=== PATIENT | female | born 1995 | race Caucasian/White ===

== ENCOUNTER 2021-10-23 18:50 | Emergency (ER) | payer MEDICAID, SELFPAY ==
[2021-10-23 19:10] VITALS: BP 133/75; PULSE 103; RESP 20; TEMP 36; O2SAT 98; BMI 23.8
[2021-10-23 19:20] LABS: Glucose, Whole Blood 73 mg/dL (60-115)
--- NOTE | 2021-10-23 20:38 | ED_ITS ---
HPI - Recheck/Abnormal Lab/Rx General Chief Complaint: Recheck/Abnormal Lab/Rx Stated Complaint: High blood sugar 150 Time Seen by Provider: 10/23/21 20:31 Source: patient Mode of arrival: ambulatory Limitations: no limitations History of Present Illness HPI narrative: BS upon waking today 114, ate breakfast two hours later 150 has been tired lately and had mild headache - grandmother told her to come get checked out for possible diabetes complaint: abnormal lab (glucose 150 at home after eating) Symptoms since prior visit: no new symptoms Associated symptoms: malaise and other (mild headache) Related Data Allergies Allergy/AdvReac Type Severity Reaction Status Date / Time No Known Allergies Allergy Unverified 01/15/20 18:26 Review of Systems Review of Systems: Constitutional : No Fever, No Chills, pos Fatigue ENT/Mouth : No sore throat, No Rhinorrhea Eyes: No Eye Pain, No Swelling, No Redness Cardiovascular : No Chest Pain, No SOB, No Dyspnea on Exertion Respiratory : No Cough, No Sputum Gastrointestinal : No Nausea, No Vomiting, No Diarrhea, No abdominal Pain Genitourinary : No Dysuria, No Urinary Frequency, No Hematuria, Musculoskeletal : No joint pain, No Myalgias, No Joint Swelling Skin : No Skin Lesions, No rash Neuro : No Weakness, No Numbness, No Dizziness, positive Headache Psych : No Anxiety/Panic, No Depression Heme/Lymph: No Bruising, No Bleeding,No Lymphadenopathy Endocrine : No Polyuria, No Polydipsia All other systems reviewed and are negative [facility] Past Medical History Attestation statement: The following information was validated with the patient. Medical History No pertinent past medical history Social History Social History (Updated 10/23/21 @ 21:16 by Michela Espinosa DO) Patient Tobacco Use Status: Never used Tobacco Advance Directives: No Advance Directives Information Provided: No Physical Exam Vital Signs: Vital Signs: Last Vital Signs Temp 96.8 F 10/23/21 19:10 Pulse 103 H 10/23/21 19:10 Resp 20 10/23/21 19:10 BP 133/75 10/23/21 19:10 Pulse Ox 98 10/23/21 19:10 O2 Del Method 10/23/21 19:10 BMI result Body Mass Index 23.8 Appearance: Alert. Oriented X3. No acute distress. Eyes: Pupils equal, round and reactive to light. ENT: Pharynx normal. Neck: Normal inspection. Neck supple. CVS: Normal heart rate and rhythm. Pulses normal. Respiratory: No respiratory distress. Breath sounds normal. Abdomen: Soft and non-tender. Skin: Skin warm and dry. Normal skin color. Normal skin turgor. Extremities: No lower extremity edema. No calf ttp Neuro: Oriented X 3. No motor deficit. No sensory deficit. Course Course Course Narrative: normal labs stable for DC MDM - Recheck/Abnormal Lab/Rx MDM Narrative Medical decision making narrative: 26 yo female with no sig PMH c/o headache and malaise for a couple of days - she is not toxic, sugar was 114 fasting, then after eating 150 her grandmother told her to come get checked for DM - I explained that the patient is fine. Can follow up with her PCP - offered UA and UPT, COVID testing. Lab Data Labs: Lab Results 10/23/21 10/23/21 10/23/21 Range/Units 19:13 21:08 21:08 POC Glucose 73 (60-115) mg/dL Urine Color YELLOW Urine Appearance HAZY Urine pH 7.0 (5.0-8.0) Ur Specific [place] 1.015 (1.005-1.025) Urine Protein NEG (NEG-TRACE) MG/DL Urine Glucose (UA) NEG (NEG) MG/DL Urine Ketones 5 (NEG) MG/DL Urine Blood TRACE (NEG) Urine Nitrite NEG (NEG) Ur Leukocyte Esterase TRACE H (NEG) Urine Test (NEGATIVE) COVID-19 (AZUCENA) Negative (Negative) COVID-19 Clin Com See Note 10/23/21 Range/Units 21:08 POC Glucose (60-115) mg/dL Urine Color Urine Appearance Urine pH (5.0-8.0) Ur Specific [place] (1.005-1.025) Urine Protein (NEG-TRACE) MG/DL Urine Glucose (UA) (NEG) MG/DL Urine Ketones (NEG) MG/DL Urine Blood (NEG) Urine Nitrite (NEG) Ur Leukocyte Esterase (NEG) Urine Test NEGATIVE (NEGATIVE) COVID-19 (AZUCENA) (Negative) COVID-19 Clin Com Discharge Plan Discharge Clinical Impression: Malaise Patient Disposition: Home, Self-Care Instructions: Fatigue (ED) Additional Instructions: return to ED for any worsening symptoms or concerns normal blood sugar negative test negative for COVID if this continues follow up with your doctor this week blood sugar 73 here Stand Alone Forms: Work/School Release
[2021-10-23 21:35] LABS: Appearance Urine HAZY; Color Urine YELLOW; Glucose Urine UA NEG (NEG); Leukocyte Esterase Urine TRACE (NEG); Nitrite Urine NEG (NEG); Specific Gravity - Urine 1.015 (1.005-1.025); UACC Culture Trigger NO; Urine Blood TRACE (NEG); Urine Ketones 5 MG/DL (NEG); Urine Protein NEG (NEG-TRACE)
[2021-10-23 21:37] LABS: UPreg QC Valid YES; Urine Pregnancy NEGATIVE (NEGATIVE)
[2021-10-23 22:04] LABS: COVID-19 Test Negative (Negative)
[2021-10-23 22:28] LABS: Bacteria Urine TRACE /LPF; Squamous Epithelial Cell Urine 3+ /LPF; WBC Clumps Urine NOTED
[2021-10-23 22:40] VITALS: BP 118/71; PULSE 96; RESP 16; TEMP 36.1; O2SAT 97
== END 2021-10-23 22:41 | disposition home or self-care (01) ==
PROVIDERS: Emergency Provider Emergency Medicine; PCP Internal Medicine
DX: R53.81 Other malaise (principal); R73.9 Hyperglycemia, unspecified; Z20.822 Contact with and (suspected) exposure to COVID-19
CPT/HCPCS: 81001; 81025; 82947; 87635; 99283; 99284

== ENCOUNTER 2023-01-11 15:49 | Outpatient (REF) | payer OTHER, SELFPAY ==
[2023-01-11 17:55] LABS: MANUAL DIFF FLAG NO
[2023-01-11 18:01] LABS: Basophils Percent Auto 0.4 % (0-2); Eosinophils Absolute Auto 0.1 X10*3/uL (0.0-0.4); Eosinophils Percent Auto 1.2 % (0-4); Hematocrit 44.1 % (37.0-47.0); Hemoglobin 14.7 g/dl (12.0-16.0); Imm Gran Abs Auto 0.02 X10*3/uL (0.00-0.03); Imm Gran Pct Auto 0.2 % (0.0-0.4); Lymphocytes Absolute Auto 2.4 X10*3/uL (1.2-4.9); Mean Corpuscular HGB Conc 33.3 g/dl (31.0-35.0); Mean Platelet Volume 11.2 fL (9.4-12.3); Monocytes Absolute Auto 0.7 X10*3/uL (0.1-1.2); Monocytes Percent Auto 7.8 % (2-11); Neutrophils Absolute Auto 5.7 x10*3/uL (2.0-8.3); Neutrophils Percent Auto 63.4 % (45-73); Platelet Count 321 X10*3/uL (160-400); Red Cell Distribution Width 12.2 % (11.0-16.0); White Blood Count 8.9 X10*3/uL (4.8-10.8)
[2023-01-11 18:32] LABS: Alanine Aminotransferase 19 U/L (0-31); Albumin Level 4.3 g/dL (3.5-5.0); Alkaline Phosphatase 49 U/L (39-117); Anion Gap 12 (12-20); Aspartate Amino Transferase 16 U/L (5-31); Bilirubin Total 0.3 mg/dL (0.0-1.0); Blood Urea Nitrogen 10 mg/dL (9-16); Calcium 9.4 mg/dL (8.4-10.2); Carbon Dioxide 26 mmol/L (22-29); Chloride 104 mmol/L (96-108); Cholesterol 150 mg/dL (<200); Estimated Glomerular Filt Rate > 60; Glucose Fasting 88 mg/dL (60-99); HDL Cholesterol 48 mg/dL (>40); Iron 52 mcg/dL (30-160); LDL Cholesterol Calculated 84 mg/dL (<100); Percent Iron Saturation 17 % (15-50); Sodium 138 mmol/L (135-145); Total Iron Binding Capacity 310 mcg/dL (228-428); Total Protein 7.7 g/dL (6.5-8.0); Triglycerides 91 mg/dL (<150); Unsaturated Iron Binding 258 ug/dL
[2023-01-11 18:47] LABS: TSH reflex Free T4 1.16 uIU/mL (0.32-4.0)
[2023-01-12 08:13] LABS: Estimated Average Glucose 100 mg/dL; Hemoglobin A1c % 5.1 % (<6.0)
[2023-01-12 08:54] LABS: ~Hepatitis C Antibody Nonreactive (Nonreactive)
== END 2023-01-11 15:50 | disposition home or self-care (01) ==
LOC: HO.CHCLDS 15:49
PROVIDERS: Visit Provider Internal Medicine
DX: Z00.00 Encounter for general adult medical examination without abnormal findings (principal)
CPT/HCPCS: 36415; 80053; 80061; 83036; 83540; 84443; 85025; 86803

== ENCOUNTER 2024-07-11 09:07 | Outpatient (REF) | payer OTHER, SELFPAY ==
--- OUTSIDE RECORDS SUMMARY | 2024-07-11 09:50 | XMS_ITS | Encounter Summary ---
Author Organization [employer] Address [address] [facility] 7t [place] [address] Care Team Providers Care Senior Pensions Administrator Name Role Phone Papo De La Fuente MD Primary Care Prov ider Reason for Visit * Reason Onset Date Comments chart prep 07/07/2024 Encounter Details Date Type Department Care Team ([facility] st Contact Info) Description 07/07/2024 Telephone [facility] CHC MED & PEDS [address] [place] [address] Papo De La Fuente MD [address] [place] [address] chart prep Social History Tobacco Use Types Packs/Day Years Used Date Smoking Tobacco: Never Smokeless Tobacco: Never Alcohol Use Standard Drinks/Week Comments Never 0 (1 standard drink = 0.6 oz pur e alcohol) Depression Answer Date Recorded Patient Health Questionnaire-9 Score 0 10/23/2022 Housing Stability Answer Date Recorded What is your housing situation today? I have chung grissom 02/26/[address] you li ve. Do you have problems with any of the following? None of the above 02/26/2023 Food Insecurity Answer Date Recorded Within the past 12 months, y ou worried that your food would run out before you got money to buy more: Never True 02/26/2023 Within the past 12 months,th e food you bought just didn't last and you didn't have enough money to get more: Never True Transportation Answer Date Recorded In the past 12 months, has l ack of transportation kept you from medical appts, meetings, work or from getting things needed for daily living? No 02/26/2023 Utilities Answer Date Recorded In the past 12 months, has t he electric, gas, oil or water company threatened to shut off services in your home? No 02/26/2023 Depression Answer Date Recorded Patient Health Questionnaire-2 Score 0 10/23/2022 Comments Unknown Sex and Gender Information Value Date Recorded Sex Assigned at Female 02/27/2022 10:33 AM EDT Legal Sex Female 10:33 AM EDT Gender Identity Female 02/27/2022 10:33 AM EDT Sexual Orientation Lesbian 07/08/2024 7: 24 AM EDT documented as of this encounter Miscellaneous Notes * Telephone Encounter - Chel Starks [place] - 07/07/2024 4:24 PM EDT Chart Prep Labs: done Images: not applicable Vaccines due: yes Referrals: complete Screenings: pap smear Overdue care gaps: Sbirt, SDOH, PHQ-9 documented in this encounter Plan of Treatment Not on file documented as of this encounter Visit Diagnoses Not on filedocumented in this encounter Additional Health Concerns Assessment Noted Time PHQ-9 Depression Total Score: 0 10/24/19 23 9:40 AM EDT documented as of this encounter Care Teams Senior Pensions Administrator Relationship Specialty Start Date End Date Papo De La Fuente MD [address] [place] [address] PCP - General Internal Medicine 02/18/19 documented as of this encounter
--- OUTSIDE RECORDS SUMMARY | 2024-07-11 09:50 | XMS_ITS | Encounter Summary ---
Author Organization [employer] Address [address] [facility] 7t [place] [address] Care Team Providers Care Party Chief Name Role Phone Papo De La Fuente MD Primary Care Prov ider Encounter Details Date Type Department Care Team (Late st Contact Info) Description 07/08/2024 2:45 PM EDT Telemedicine [facility] MED & PEDS [address] [place] [address] Papo De La Fuente MD [address] [place] [address] Other insomnia (Primary Dx) Social History Tobacco Use Types Packs/Day Years [...] AM EDT documented as of this encounter Plan of Treatment Scheduled Orders Name Type Priority Associated Diagnoses Orde r Schedule CBC auto differential Lab Routine Other insomnia Expected: 07/09/2024 (Approximate), Expires: 07/09/2025 Comprehensive Metabolic Panel Lab Routine Other insomnia Expected: 07/09/2024 (Approximate), Expires: 07/09/2025 Lipid Panel, Standard Lab Routine Other insomnia Expected: 07/09/2024 (Approximate), Expires: 07/09/2025 TSH W/Reflex to FT4 Lab Routine Other insomnia Expected: 07/09/2024 (Approximate), Expires: 07/09/2025 Hemoglobin A1c Lab Routine Other insomnia Expected: 07/09/2024 (Approximate), Expires: 07/09/2025 documented as of this encounter Visit Diagnoses Diagnosis Other insomnia- Primary documented in this encounter Additional Health Concerns Assessment Noted Time PHQ-9 Depression Total Score: 0 10/24/19 23 9:40 AM EDT documented as of this encounter Care Teams Party Chief Relationship Specialty Start Date End Date Papo De La Fuente MD [address] [place] [phone] PCP - General Internal Medicine 02/18/19 documented as of this encounter
--- OUTSIDE RECORDS SUMMARY | 2024-07-11 09:51 | XMS_ITS | Encounter Summary ---
Author Organization [employer] Address [address] [facility] [address] [place] [address] Care Team Providers Care Oil And Gas Drafter Name Role Phone Papo De La Fuente MD Primary Care Prov ider Encounter Details Date Type Department Care Team (Latest Contact Info) Description 07/08/2024 Travel Social History Tobacco Use Types Packs/Day Years [...] as of this encounter Plan of Treatment Not on file documented as of this encounter Visit Diagnoses Not on filedocumented in this encounter Additional Health Concerns Assessment Noted Time PHQ-9 Depression Total Score: 0 10/24/19 23 9:40 AM EDT documented as of this encounter Care Teams Oil And Gas Drafter Relationship Specialty Start Date End Date Papo De La Fuente MD [address] [place] [phone] PCP - General Internal Medicine 02/18/19 documented as of this encounter
--- OUTSIDE RECORDS SUMMARY | 2024-07-11 09:51 | XMS_ITS | Encounter Summary ---
Author Organization [employer] Address [address] [facility] 7[address] [place] [address] Care Team Providers Care Rodding Anode Worker Name Role Phone Papo De La Fuente MD Primary Care Prov ider Reason for Visit * Reason Onset Date Comments Insurance 07/08/2024 Encounter Details Date Type Department Care Team ([facility] st Contact Info) Description 07/08/2024 Telephone [facility] CHC MED & PEDS [address] [place] [address] Papo De La Fuente MD [address] [place] [address] Insurance Social History Tobacco Use Types Packs/Day Years [...] encounter Miscellaneous Notes * Telephone Encounter - Beverley Wright - 07/08/2024 10:25 AM EDT FD informed pt that pcp/loc needs to be updated. Pt verbally agreed for docket specialist to make change. FD did advise pt to verify that change is made for billing purposes. documented in this encounter Plan of Treatment Not on file documented as of this encounter Visit Diagnoses Not on filedocumented in this encounter Additional Health Concerns Assessment Noted Time PHQ-9 Depression Total Score: 0 10/24/19 23 9:40 AM EDT documented as of this encounter Care Teams Rodding Anode Worker Relationship Specialty Start Date End Date Papo De La Fuente MD [address] [place] [phone] PCP - General Internal Medicine 02/18/19 documented as of this encounter
--- OUTSIDE RECORDS SUMMARY | 2024-07-11 09:51 | XMS_ITS | Clinical Summary ---
Author Organization [employer] Address [address] [facility] 7t [place] [address] Care Team Providers Care Guard Captain Name Role Phone Papo De La Fuente MD Primary Care Prov ider Allergies No known active allergies Medications No known medications Active Problems Problem Noted Date Diagnosed Date Upper back pain 01/11/2023 Assessment & Plan (01/11/2023 6:19 PM EDT): Patient has macromastia, she has been complaining of upper back/neck pain, will refer to PT Annual physical exam 01/11/2023 Assessment & Plan (01/11/2023 6:20 PM EDT): Physical exam was unremarkable, she had her pap smear done on 2021, due in 3 years, denied any new symptoms, will order routine blood work Other insomnia 10/23/2022 Encounters Date Type Department Care Team Description 07/08/2024 2:45 PM EDT Telemedicine [facility] MED & PEDS [address] [place] [address] Papo De La Fuente MD Other insomnia (Primary Dx) 07/08/2024 Telephone [facility] MED & PEDS [address] [place] [address] Papo De La Fuente MD Insurance 07/08/2024 Travel 07/07/2024 Telephone [facility] MED & PEDS [address] [place] [address] Papo De La Fuente MD chart prep 06/04/2024 Telephone [facility] MED[facility] [address] [place] [address] Latasha Cano CNM 04/18/2024 Travel from Last 3 Months Immunizations Name Administration Dates Next Due Influenza injectable quadrivalent preservative f ree 01/11/2023 Social History Tobacco Use Types Packs/Day Years Used Date Smoking Tobacco: Never Smokeless Tobacco: Never Tobacco Cessation:Counseling Given: Not Answered Alcohol Use Standard Drinks/Week Comments Never 0 [...] Orientation Lesbian 07/08/2024 7: 24 AM EDT Last Filed Vital Signs Vital Sign Reading Time Taken Comments Blood Pressure 116/75 01/11/2023 3:29 PM EDT Pulse 88 01/11/2023 3:29 PM EDT Temperature 36.9 ??C (98.5 ??F) 01/11/2023 3:29 PM ED T Respiratory Rate 20 01/11/2023 3:29 PM EDT Oxygen Saturation - - Inhaled Oxygen Concentration - - Weight 60.3 kg (133 lb) 01/11/2023 3:29 PM EDT Height 154.9 cm (5' 1 ) 01/11/2023 3:29 PM EDT Body Mass Index 25.13 01/11/2023 3:29 PM EDT Plan of Treatment Health Maintenance Due Date Last Done Comments Alcohol/Substance Use Screening 2007 Family Planning (PISQ) 10/06/2010 Depression Screening 10/24/2023 10/23/2022, 10/24/19 23 SDOH Screening 10/24/2023 10/23/2022 COVID-19 Vaccine ( season) 2023 08/16/2020, 07/24/2020 Influenza Vaccine (#1) 2023 , 06/08/2021, 03/17/2019, Additional history exists Tobacco Screening 01/12/2024 01/11/2023 Pap Smear 06/08/2024 06/08/2021 DTaP/Tdap/Td Vaccines (2 - Td or Tdap) 07/19/2028 07/19/2018 Zoster Vaccines (1 of 2) 10/06/2045 RSV Patients and Patients Aged 60 years or older (1 - 1-dose 75+ series) 10/06/2070 Hepatitis B Vaccines Completed 11/08/2020, 03/17/2019, 01/03/2019 HIV Screening Completed 12/07/2021 Hepatitis C Screening Completed 01/11/2023, 022 HIB Vaccines Aged Out No longer eligi ble based on patient's age to complete this topic HPV Vaccines Aged Out No longer eligi ble based on patient's age to complete this topic Hepatitis A Vaccines Aged Out No long er eligible based on patient's age to complete this topic IPV Vaccines Aged Out No longer eligi ble based on patient's age to complete this topic Meningococcal Vaccine Aged Out No andrae erick eligible based on patient's age to complete this topic Pneumococcal Vaccine: Pediatrics (0 to 5 Years) and At-Risk Patients (6 to 49) Years) Aged Out No longer eligible based on patient's age to complete this topic RSV under 20 months Aged Out No longe r eligible based on patient's age to complete this topic Rotavirus Vaccines Aged Out No longer eligible based on patient's age to complete this topic Procedures Procedure Name Priority Date/Time Associated Diagnosis Comments HEPATITIS C AB W/REFL TO HCV RNA, QN, PCR Routine 01/11/2023 3:53 PM EDT Annual physical exam HIV 1/2 ANTIGEN/ANTIBODY, FOURTH GENERATION W/RFL Routine 12/07/2021 8:47 AM EDT [facility] PAP Routine 06/08/2021 2:51 PM EST from Last 3 Months or Most Recently Relevant to Health Maintenance Results * Hepatitis C Antibody with Reflex to HCV, RNA, Quantitative, Real-Time PCR (01/11/2023 3:53 PM EDT) Hepatitis C Antibody Nonreactive Nonreactive [facility] Comment:Antibodies to HCV no t detected; does not exclude early acuteHCV infection. Blood Venous blood specimen / Unknown 01/11/2023 3:53 PM EDT 01/11/2023 5:51 PM EDT Papo Leos MD LAB BLOOD ORDERABL ES Final Result [facility] [address] [place] [phone] * HIV 1/2 ANTIGEN/ANTIBODY,FOURTH GENERATION W/RFL (12/07/2021 8:47 AM EDT) HIV-1/2 ANTIGEN AND ANTIBODIES, 4TH GENERATION W/ REFLEX NON-REACT LUCI NON-REACT LUCI [facility] Comment: HIV-1 antigen and HIV-1/HIV-2 antibodies were not detected. There is no laboratory evidence of HIV infection. ?? PLEASE NOTE: This information has been disclosed to you from records whose confidentiality may be protected by state law. ??If your state requires such protection, then the state law prohibits you from making any further disclosure of the information without the specific written consent of the person to whom it pertains, or as otherwise permitted by law. A general authorization for the release of medical or other information is NOT sufficient for this purpose. ? For additional information please refer to http://education.[employer]/faq/VVX578 (This link is being provided for informational/ educational purposes only.) ? The performance of this assay has not been clinically validated in patients less than 2 years old. ?? 12/07/2021 8:47 AM EDT us Papo Leos MD LAB BLOOD ORDERABL ES Final Result [facility] [address] [place] [address], * THINPREP TIS PAP (06/08/2021 2:51 PM EST) Clinical Information: None given [facility] COMMENT SEE COMMENT [facility] Comment: EXPLANATORY NOTE: ? The Pap is a screening test for cervical cancer. It is ?? not a diagnostic test and is subject to false negative ?? and false positive results. It is most reliable when a ?? satisfactory sample, regularly obtained, is submitted ?? with relevant clinical findings and history, and when ?? the Pap result is evaluated along with historic and ?? current clinical information. ?? COMMENT: This Pap test has been evaluated with computer assisted technology. [facility] Brazing Furnace Operator : SEE COMMENT [facility] Comment: NICOLAS, CT(ASCP) CT screening location: [address] ??[id number] Interpretation/R esult: Negative for intraepithelial lesion or malignancy. [facility] LMP: 05/14/2021 [facility] Prev. BX: NONE GIVEN [facility] Prev. PAP: INITIAL PAP [facility] SOURCE: None given [facility] Statement Of Adequacy: SEE COMMENT [facility] Comment: Satisfactory for evaluation. Endocervical/transformation zone component absent. 06/08/2021 2:51 PM EST us Latasha Rizzardini CNM LAB PATHOLOGY ORDERABLES Final Result [facility] [address] from Last 3 Months or Most Recently Relevant to Health Maintenance Insurance [employer] [place] [id number] Care Teams Guard Captain Relationship Specialty Start Date End Date Papo De La Fuente MD [address] [place] [address] D[place]IT[place] [id number] PCP - General Internal Medicine 02/18/19
[2024-07-11 14:49] LABS: MANUAL DIFF FLAG NO
[2024-07-11 14:56] LABS: Basophils Absolute Auto 0.1 X10*3/uL (0.0-0.2); Basophils Percent Auto 0.8 % (0-2); Eosinophils Absolute Auto 0.2 X10*3/uL (0.0-0.4); Eosinophils Percent Auto 2.5 % (0-4); Hematocrit 46.2 % (37.0-47.0); Imm Gran Abs Auto 0.02 X10*3/uL (0.00-0.03); Imm Gran Pct Auto 0.3 % (0.0-0.4); Lymphocytes Absolute Auto 1.7 X10*3/uL (1.2-4.9); Lymphocytes Percent Auto 26.6 % (20-40); Mean Corpuscular HGB Conc 32.5 g/dl (31.0-35.0); Mean Corpuscular Hemoglobin 29.9 pg (27.0-33.0); Mean Corpuscular Volume 92.2 fL (80.0-98.0); Mean Platelet Volume 11.1 fL (9.4-12.3); Monocytes Absolute Auto 0.4 X10*3/uL (0.1-1.2); Monocytes Percent Auto 6.4 % (2-11); Neutrophils Absolute Auto 4.1 x10*3/uL (2.0-8.3); Neutrophils Percent Auto 63.4 % (45-73); Platelet Count 332 X10*3/uL (160-400); Red Blood Count 5.01 X10*6/uL (4.20-5.50); Red Cell Distribution Width 11.9 % (11.0-16.0); White Blood Count 6.4 X10*3/uL (4.8-10.8)
[2024-07-11 15:05] LABS: Estimated Average Glucose 97 mg/dL
[2024-07-11 17:25] LABS: Alanine Aminotransferase 19 U/L (0-31); Albumin Level 4.2 g/dL (3.5-5.0); Alkaline Phosphatase 47 U/L (39-117); Anion Gap 10 (12-20); Aspartate Amino Transferase 27 U/L (5-31); Bilirubin Total 0.6 mg/dL (0.0-1.0); Blood Urea Nitrogen 10 mg/dL (9-16); Calcium 9.4 mg/dL (8.4-10.2); Carbon Dioxide 27 mmol/L (22-29); Chloride 107 mmol/L (96-108); Cholesterol 144 mg/dL (<200); Estimated Glomerular Filt Rate > 60; Glucose Random 80 mg/dL (60-115); HDL Cholesterol 41 mg/dL (>40); LDL Cholesterol Calculated 81 mg/dL (<100); Potassium 3.9 mmol/L (3.3-5.1); Sodium 140 mmol/L (135-145); TSH reflex Free T4 0.71 uIU/mL (0.32-4.0); Total Protein 7.9 g/dL (6.5-8.0); Triglycerides 111 mg/dL (<150)
== END 2024-07-11 09:08 | disposition home or self-care (01) ==
LOC: HO.CHCLDS 09:07
PROVIDERS: Visit Provider Internal Medicine
DX: G47.09 Other insomnia (principal)
CPT/HCPCS: 36415; 80053; 80061; 83036; 84443; 85025